=== PATIENT | female | born 1990 | race Caucasian/White ===

== ENCOUNTER → 2019-04-01 12:14 | Outpatient (CLI) | payer SELFPAY | END | disposition home or self-care (01) | LOC: D.LDO 12:14 | PROVIDERS: ATTEND Obstetrics & Gynecology | DX: O36.8130 Decreased fetal movements, third trimester, not applicable or unspecified (principal); Z3A.28 28 weeks gestation of pregnancy ==

== ENCOUNTER → 2019-04-05 10:38 | Outpatient (CLI) | payer SELFPAY | END | disposition home or self-care (01) | LOC: D.LDO 10:38 | PROVIDERS: ATTEND Obstetrics & Gynecology | DX: O26.93 Pregnancy related conditions, unspecified, third trimester (principal); Z3A.28 28 weeks gestation of pregnancy ==

== ENCOUNTER → 2019-04-08 11:28 | Outpatient (CLI) | payer SELFPAY | END | disposition home or self-care (01) | LOC: D.LDO 11:28 | PROVIDERS: ATTEND Obstetrics & Gynecology | DX: O24.419 Gestational diabetes mellitus in pregnancy, unspecified control (principal) ==

== ENCOUNTER → 2019-04-12 10:54 | Outpatient (CLI) | payer SELFPAY | END | disposition home or self-care (01) | LOC: D.LDO 10:54 | PROVIDERS: ATTEND Obstetrics & Gynecology | DX: O24.419 Gestational diabetes mellitus in pregnancy, unspecified control (principal); Z3A.29 29 weeks gestation of pregnancy ==

== ENCOUNTER 2019-04-16 06:56 | Inpatient (IN) | payer SELFPAY ==
[~2019-04-16] VITALS: Ht 170.2 cm; Wt 122.0 kg
--- NOTE | 2019-04-16 07:30 | NUR ---
pt admitted for diebetic/insulin teaching due to GODM uncontrolled with oral medication.
[2019-04-16] MEDS ORDERED: GLYBURIDE2.5 MG PO (07:35)
[2019-04-16] MEDS ORDERED: GLYBURIDE5 M1 (07:35)
--- NOTE | 2019-04-16 08:00 | NUR ---
saline lock to left wrist x 1 attempt with 22 gauge cath. Admit hx and assessment completed. Pt states understanding to plan of care and denies any questions at this time. dietary notified for 1999 ADA diet.
--- NOTE | 2019-04-16 08:30 | NUR ---
External monitors applied for NST per orders.
--- NOTE | 2019-04-16 09:00 | NUR ---
REACTIVE NST NOTED WITH MONITORS REMOVED. PT GIVEN PRINTED INFO/INSTRUCTIONS ABOUT INSULIN INJECTIONS, ALSO GONE OVER STEP BY STEP FOR HOW TO DRAW INSULIN UP AND HOW TO READ INSULIN SYRINGE FOR DOSAGE. 8UNITS REGULAR AND 15UNITS NPH GIVEN SC TO LEFT ARM SCANNED TO EMAR. FASTING BLOOD SUGAR WAS 81. 2000ADA BREAKFAST TRAY SERVED AND PT WILL CALL ONE HOUR AFTER SHE HAS FINISHED EATING SO THAT BLOOD SUGAR COULD BE RETESTED. CALL LIGHT WITH IN HER REACH.
[2019-04-16 09:29] VITALS: BP 117/65; BMI 42.2
--- NOTE | 2019-04-16 10:45 | NUR ---
FSBS 145 ONE HOUR AFTER EATING. PT DENIES PAIN OR DISCOMFORT AND HAS NO NEEDS AT THIS TIME.
--- NOTE | 2019-04-16 13:48 | NUR ---
DR. MORALES CALLS UNIT. REPORT ON FBSB. REQUEST CALL BACK WITH LUNCH 1 HOUR POST PRANIAL READING.
--- NOTE | 2019-04-16 14:20 | NUR ---
FSBS 145 ONE HOUR AFTER LUNCH. PT DENIES PAIN OR DISCOMFORT AND HAS NO NEEDS AT THIS TIME. SHE IS ON HER CELL PHONE WITH SIDE RAILS UP X 2 AND CALL LIGHT IN REACH.
--- NOTE | 2019-04-16 14:30 | NUR ---
DR CARMEN BANERJEE.
--- NOTE | 2019-04-16 19:07 | NUR ---
FSB 105. DR. MORALES CALLED WITH RESULTS.
[2019-04-16 19:39] VITALS: BP 114/66
--- NOTE | 2019-04-16 20:07 | NUR ---
NST PERFORMED, REACTIVE. MONITORS REMOVED, PT VERBALIZES UNDERSTANDING THAT SHE WILL BE PLACED ON THE MONITOR AGAIN IN THE AM, FOR HER AM NST.
--- NOTE | 2019-04-16 22:03 | NUR ---
RN TO PT BEDSIDE, PT REQUESTING ICE WATER, ICE WATER PROVIDED TO PT.
--- NOTE | 2019-04-17 00:49 | NUR ---
PT AND SIGNIFICANT OTHER IS SLEEPING. BED IN LOWEST POSITON, SIDE RAILS UP X2, PHONE AND CALL LIGHT WITHIN REACH. LIGHTS IN ROOM ARE DIM, PT HAS NON SKID SOCKS ON.
--- NOTE | 2019-04-17 06:25 | NUR ---
FASTING FSBS 96. PT IS RESTING, PT STATES SHE DOES NOT HAVE ANY OTHER NEEDS AT THIS TIME. FOB RESTING AT BEDSIDE. BED IN LOWEST POSITION, SIDE RAILS UP X2, PHONE AND CALL LIGHT WITHIN REACH.
--- NOTE | 2019-04-17 07:07 | NUR ---
PT AND FOB SLEEPING, UNABLE TO GIVE BEDSIDE REPORT.
--- NOTE | 2019-04-17 07:07 | NUR ---
ASSUMED CARE OF THIS PATIENT. CURRENTLY SLEEPING. WILL COMPLETE SHIFT ASSESSMENT WHEN AWAKE. INSULIN WILL BE DUE JUST BEFORE BREAKFAST IS SERVED.
--- NOTE | 2019-04-17 07:26 | NUR ---
PAGED DR MORALES TO REPORT THIS AM FASTING BS OF 96.
--- NOTE | 2019-04-17 07:32 | NUR ---
HAVE NOT HEARD FROM DR MORALES. PAGED AGAIN AT THIS TIME.
--- NOTE | 2019-04-17 07:44 | NUR ---
DR MORALES DID NOT RETURN CALL. CONTACTED DR LUPE MD FREIGHT UNLOADER, TO SEE IF WE ARE STILL SUPPOSED TO CALL BLOOD SUGARS TO DR MORALES. INFORMED OF CURRENT FAST BS ORDERED AM INSULINE DOSAGE ORDERED. SHE WILL CALL ME BACK AFTER TALKING TO DR MORALES.
--- NOTE | 2019-04-17 08:28 | NUR ---
DR ANDRADE CALLED BACK AND NEW ORDERS WERE RECEIVED. PT SITTING UP IN ROOM. SAYS SHE HAS A GLUCOMETER AT HOME AND SUPPLIES TO DO FSBS. SAYS SHE KNOW HOW TO DO THAT. ALSO GAVE SELF INSULIN LAST PM, DRAWING UP REGULAR INSULIN AND THEN NPH IN SAME SYRINGE. PT DEMONSTRATED TECHNIQUE OF DRAWING UP INSULIN AND GIVING SELF SQ INJECTION LUQ TO THIS RN AND Nellie MASSEY RN FOR THIS AM DOSE. INFORMED OF PLAN TO DC HOME THIS AM. WILL NEED MONITORING FIRST AND IF EVERYTHING LOOKS GOOD WILL DC HOME PER DR ANDRADE. REGULAR DIET WAS SERVED.
[2019-04-17 08:51] VITALS: BP 103/58
--- NOTE | 2019-04-17 09:51 | NUR ---
1 HOUR PP FSBS 175 ON FACILITY MONITOR; PT DEMONSTRATES ACCURATE PROCEDURE FOR FSBS TESTING AND CONFIRMS WITH HOME DEVICE. HOME DEVICE WITH FSBS READING 198. INSTRUCTED TO NOTIFY MD OF GLUCOSE MONITOR DISCREPANCY WHEN KEEPING LOG AT HOME. WILL NOTIFY PRIMARY CARE NURSE OF THIS WELL FOR FOLLOW-UP.
[2019-04-17 09:58] VITALS: Ht 170.2 cm; Wt 122.0 kg
--- NOTE | 2019-04-17 09:59 | NUR ---
DR MORALES ON UNIT MAKING ROUNDS, UPDATED MD ON MOST RECENT 1 HOUR PP FSBS. STATES TO CONTINUE REGIMEN AND FOR PT TO KEEP LOG OVER THE WEEKEND, AND WILL UPDATE REGIMEN ON FOLLOW-UP SCHEDULED ON FRIDAY IN CLINIC. ALSO STATES PT OKAY TO GO HOME NOW. RELAYED THIS INFORMATION TO PT. PT STATES UNDERSTANDING.
--- NOTE | 2019-04-17 11:09 | NUR ---
AMBULATING IN [place]. WAITING FOR DISCHARGE.
--- NOTE | 2019-04-17 11:20 | NUR ---
PTS PHARMACY CONTACTED REGARDING HOME INSULIN. TALKED TO NANCY PARNELL, PHARMACIST- NOVOLIN NPH 15UNITS/ REG 8UNITS AC BREAKFAST AND NPH 10UNITS/REGULAR 6UNITS AC DINNER PRESCRIPTION GIVEN. CONFIRMED INFO WITH PHARMACIST.
[2019-04-17] MEDS ORDERED: HUMULIN N100 U/ML SC (11:28)
[2019-04-17] MEDS ORDERED: HUMULIN N100 U/ML SQ (11:30)
[2019-04-17] MEDS ORDERED: NOVOLIN R100 U/ML SC ×3 (11:39→11:42)
--- NOTE | 2019-04-17 12:27 | NUR ---
LAYING IN BED READY TO GO HOME. SAYS SHE HAS NOT TALKED TO INTELLIGENCE OFFICER SINCE SHE WAS ADMITTED. CONTACTED DIETITICIAN WHO WILL BE OVER TO SEE PT YOLIS. WILL DC HOME AFTER CONSULT IS COMPLETED. DENIES NEEDING ANYTHING. DISCUSSED PLAN FOR F/U ON FRIDAY FOR BS REVIEW AND INSULIN ADJUSTMENT WITH DR MORALES PER HIM THIS AM. VERBALIZED UNDERSTANDING.
--- NOTE | 2019-04-17 12:49 | NUR ---
SITTING ON COUCH GETTING READY TO EACH LUNCH. MEDICAL LAB ASSISTANT HERE TO TALK TO PATIENT ABOUT DIABETIC DIET.
--- NOTE | 2019-04-17 13:04 | NUR ---
CODING ANALYST FINISHED WITH CONSULT. PT SAYS SHE GOT EXACTLY WHAT SHE NEEDED WHICH INCLUDED A LIST OF FOODS. WILL DC HOME AFTER LUNCH.
--- NOTE | 2019-04-17 14:05 | NUR ---
DC'D AMBULATORY AFTER REVIEWING DC INSTRUCTIONS TO INCLUDE INSULIN ADMINISTRATION, S&S HYPOGLYCEMIA, REVIEWED LOG SHEET AND IMPORTANCE OF TRACKING BS, INSULIN DOSAGES AND FOOD INTAKE. DISCUSSED PERAMETERS OF EXPECTED FASTING AND 1 HOUR PP BS GIVEN BY DR ANDRADE. TO F/U FRIDAY FOR NST AND BS REVIEW WITH DR MORALES. ALSO REVIEWED S&S PTL, PREECLAMPSIA AND DANGER SIGNS. VERBALIZED UNDERSTANDING. ALL BELONGINGS REMOVED FROM ROOM. PT WILL CARRIER ASSOCIATE RX AT PHARMACY ALONG WITH OTC SYRINGES AND DISPOSAL BOX.
== END 2019-04-17 14:05 | disposition home or self-care (01) | DRG 833 ==
LOC: D.LDO 06:56 → D.LD 07:13
PROVIDERS: ADMIT Obstetrics & Gynecology; ATTEND Obstetrics & Gynecology
DX: O24.414 Gestational diabetes mellitus in pregnancy, insulin controlled (principal); Z3A.30 30 weeks gestation of pregnancy; O99.213 Obesity complicating pregnancy, third trimester

== ENCOUNTER → 2019-04-19 09:54 | Outpatient (CLI) | payer SELFPAY ==
[2019-04-17 09:58] VITALS: BMI 42.2
[~2019-04-19 09:54] MED LIST: GLYBURIDE2.5 MG PO; GLYBURIDE5 M1; HUMULIN N100 U/ML SC; HUMULIN N100 U/ML SQ; NOVOLIN R100 U/ML SC
== END | disposition home or self-care (01) ==
LOC: D.LDO 09:54
PROVIDERS: ATTEND Obstetrics & Gynecology
DX: O24.419 Gestational diabetes mellitus in pregnancy, unspecified control (principal); Z3A.30 30 weeks gestation of pregnancy

== ENCOUNTER → 2019-04-22 10:50 | Outpatient (CLI) | payer SELFPAY ==
[2019-04-17 09:58] VITALS: BMI 42.2
== END | disposition home or self-care (01) ==
LOC: D.LDO 10:50
PROVIDERS: ATTEND Obstetrics & Gynecology
DX: O24.419 Gestational diabetes mellitus in pregnancy, unspecified control (principal); Z3A.31 31 weeks gestation of pregnancy

== ENCOUNTER 2020-08-01 22:02 | Outpatient (CLI) | payer MEDICAID ==
[2020-05-12 17:13] VITALS: BMI 41.6
[~2020-08-01 22:02] MED LIST changes: +FOLATE0.4 MG PO; +HUMULIN R100 UNIT/1 SC; +IVERMECTIN3 MG PO; +MUCINEX600 MG PO; +OMNICEF300 MG PO; +PULMICORT0.5 MG/21 INH; +REGLAN5 MG PO; +VITAMIN B-1100 M1 PO; +VITAMIN C500 M1 PO; +VITAMIN D325 MC1 PO; +ZINC-220220 MG PO; +ZITHROMAX250 MG PO
== END 2020-08-02 01:20 | disposition home or self-care (01) ==
LOC: D.LDO 22:02 → D.LD 23:12 → D.LDO 08-02 01:20
PROVIDERS: ATTEND Student in an Organized Health Care Education/Training Program
DX: O09.93 Supervision of high risk pregnancy, unspecified, third trimester (principal); O24.419 Gestational diabetes mellitus in pregnancy, unspecified control; O36.8130 Decreased fetal movements, third trimester, not applicable or unspecified